=== PATIENT | female | born 1995 ===

== ENCOUNTER 2017-09-10 18:30 | Emergency (ER) | payer MEDICAID ==
[2017-09-10 18:49] VITALS: BP 137/81
[2017-09-10] MEDS ORDERED: TYLENOL PO ONE (20:51)
[2017-09-11] MEDS ORDERED: PERCOCET 5/325 PO ONE (01:47)
--- NOTE | 2017-09-11 01:49 | Emergency Department Report ---
ED Female HPI - General Chief complaint: Skin/Abscess/Foreign Body Stated complaint: BARTHOLIN CYST Time Seen by Provider: 09/11/17 01:43 Source: patient Mode of arrival: Ambulatory Limitations: No Limitations - History of Present Illness Initial comments: 22-year-old -[place] female comes in reporting that she has a Bartholin' s cyst for one and a half weeks that is giving her pain. Patient reports that she's had this before and this is her third one. Patient reports that she has recently moved here from [place] and does not have a [facility]. Patient is allergic to Bactrim. Currently takes no medications has had no surgical past medical history. Reports the pains a 10 out of 10. - Related Data Previous Rx's Medication Instructions Recorded Last Taken Type Cephalexin [Keflex] 500 mg PO BID 10 Days #20 capsule 09/11/17 Unknown Rx Ibuprofen [Motrin 800 MG tab] 800 mg PO Q8HR PRN #30 tablet 09/11/17 Unknown Rx Allergies Allergy/AdvReac Type Severity Reaction Status Date / Time sulfamethoxazole Allergy Hives Verified 09/10/17 18:44 [From Bactrim] trimethoprim [From Bactrim] Allergy Hives Verified 09/10/17 18:44 ED Review of Systems ROS: Stated complaint: BARTHOLIN CYST Other details as noted in HPI Genitourinary: as per HPI ED Past Medical Hx - Past Medical History Previous Medical History?: No - Surgical History Past Surgical History?: No - Social History Smoking Status: Current Every Day Smoker Substance Use Type: None - Medications Home Medications: Home Medications Medication Instructions Recorded Confirmed Last Taken Type Cephalexin [Keflex] 500 mg PO BID 10 Days #20 capsule 09/11/17 Unknown Rx Ibuprofen [Motrin 800 MG tab] 800 mg PO Q8HR PRN #30 tablet 09/11/17 Unknown Rx ED Physical Exam - General Limitations: No Limitations General appearance: alert, in no apparent distress - Eye Eye exam: Present: EOMI - Respiratory Respiratory exam: Present: normal lung sounds bilaterally. Absent: respiratory distress - Cardiovascular Cardiovascular Exam: Present: regular rate, normal rhythm. Absent: systolic murmur, diastolic murmur, rubs, gallop - External exam: Present: erythema, swelling, lesions (left labia tender to palpate) - Extremities Exam Extremities exam: Present: normal inspection, full ROM - Back Exam Back exam: Present: normal inspection, full ROM - Neurological Exam Neurological exam: Present: alert, oriented X3 - Psychiatric Psychiatric exam: Present: normal affect, normal mood - Skin Skin exam: Present: warm ED Course Vital Signs 09/10/17 18:45 Temperature 99.5 F Pulse Rate 108 H Respiratory 16 Rate Blood Pressure 137/81 O2 Sat by Pulse 98 Oximetry - I & D Left Vagina Type of Procedure: Simple Site: left labia minora Bartholin cysts last abscess Blade Size: 11 I & D Procedure: betadine prep, sterile drapes applied Progress: Patient tolerated procedure well ED Medical Decision Making - Medical Decision Making Patient has been evaluated by this provider fast track. Percocet order for pain management around 12:00. Ibuprofen ordered at 419 for pain management. Incision and drainage of a Bartholin's cyst. Discussed the patient to follow up with [facility] for further evaluation and treatment Critical care attestation.: If time is entered above; I have spent that time in minutes in the direct care of this critically ill patient, excluding procedure time. ED Disposition Clinical Impression: Bartholin's gland abscess Disposition: TO HOME OR SELFCARE Is pt being admited?: No Does the pt Need Aspirin: No Condition: Stable Instructions: Bartholin Cyst (ED), Abscess Incision and Drainage (ED), Abscess (ED) Additional Instructions: Complete antibiotics as prescribed. Take ibuprofen 800 mg as needed for pain. Follow-up with [facility] for further evaluation and treatment Prescriptions: Cephalexin [Keflex] 500 mg PO BID 10 Days #20 capsule Ibuprofen [Motrin 800 MG tab] 800 mg PO Q8HR PRN #30 tablet PRN Reason: Pain , Severe (7-10) Referrals: PRIMARY CARE [Primary Care Provider] - 3-5 Days [facility] [Provider Group] - 3-5 Days [facility] [Provider Group] - 3-5 Days [facility] [Provider Group] - 3-5 Days Forms: Work/School Release Form(ED)
[2017-09-11] MEDS ORDERED: XYLOCAINE 1% MPF 5 mL INFILTRATI ONE (04:11)
[2017-09-11] MEDS ORDERED: ROCEPHIN IM ONE (04:11)
[2017-09-11] MEDS ORDERED: ZITHROMAX PO ONE (04:11)
[2017-09-11] MEDS ORDERED: MOTRIN ONE (04:13)
[2017-09-11] MEDS ORDERED: MOTRIN PO ONE (04:14)
== END 2017-09-11 04:24 | disposition home or self-care (01) ==
LOC: ED 18:30
DX: N75.1 Abscess of Bartholin's gland (principal); F17.200 Nicotine dependence, unspecified, uncomplicated; Z88.2 Allergy status to sulfonamides
CPT/HCPCS: 56420; 96372; 99282; J0696